=== PATIENT | female | born 1985 | race Caucasian/White ===

== ENCOUNTER 2020-08-28 10:55 | Emergency (ER) | payer MEDICAID, SELFPAY ==
[2020-08-28] MEDS ORDERED: Ketorolac Tromethamine 30 MG/ML VIAL ONE (11:51)
== END 2020-08-28 12:07 | disposition home or self-care (01) ==
LOC: CSHERS 10:55
DX: M54.5 Low back pain (principal); G89.29 Other chronic pain; M43.6 Torticollis
CPT/HCPCS: 96372; 99283; J1885